=== PATIENT | male | born 1945 | race Hispanic/Latino ===

== ENCOUNTER 2017-02-24 15:55 | Emergency (ER) | payer MEDICARE ==
[2017-02-24 16:07] VITALS: BP 148/92; RESP 16; TEMP 98; BMI 24.3
[2017-02-24] MEDS ORDERED: TDAP Vaccine 0.5 mL Syr IM ONE (16:23)
--- NOTE | 2017-02-24 16:27 | ED PDOC ---
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 Patient stated he tripped and fell down forward, causing face injury. Patient noted cervical spine fusion surgery. Denies sob, cp, hemoptysis, dizziness, paresthesias, or abnormal gait. Time/Duration: Prior to Arrival Quality: Aching Context: Home Past Medical History - Provider Review Nursing Documentation Reviewed: Yes - Infectious Disease Hx of Infectious Diseases: None - Tetanus Immunization Tetanus Immunization: Unknown - Cardiac Hx Cardiac Disorders: Yes Hx Hypertension: Yes - Pulmonary Hx Respiratory Disorders: No - Neurological Hx Paralysis: No - HEENT Hx HEENT Disorder: No (WEARS RX GLASSES) - Renal Hx Renal Disorder: No - Endocrine/Metabolic Hx Endocrine Disorders: No - Hematological/Oncological Hx Blood Transfusions: No Hx Blood Transfusion Reaction: No - Integumentary Hx Dermatological Disorder: No - Musculoskeletal/Rheumatological Hx Falls: No - Gastrointestinal Hx Gastrointestinal Disorders: Yes (CONSTIPATION,COLON POLYPS,AKILA ING. HERNIA,) - Genitourinary/Gynecological Hx Genitourinary Disorders: Yes Hx Reproductive Disorders: Yes (ENLARGED PROSTATE) - Psychiatric Hx Emotional Abuse: No Hx Physical Abuse: No Hx Substance Use: No - Past Surgical History Past Surgical History: No Previous - Surgical History Other/Comment: 11-28-14 POST FIXATION/FUSION POST CERVICAL DECOMPRESSION 11-28-14 - Anesthesia Hx Anesthesia Reactions: Yes (VOMITING WITH ETHER CHILD) Hx Malignant Hyperthermia: No - Suicidal Assessment Feels Threatened In Home Enviroment: No Family/Social History - Physician Review Nursing Documentation Reviewed: Yes Family/Social History: No Known Family HX Smoking Status: Never Smoked Hx Alcohol Use: Yes (BEER OCCASIONALLY) Hx Substance Use: No Hx Substance Use Treatment: No Allergies/Home Meds Allergies/Adverse Reactions: Allergies No Known Allergies Allergy (Verified 02/24/17 16:11) Home Medications: Home Meds Medication Instructions Recorded Confirmed Apixaban [Eliquis] 5 mg PO BID 06/02/16 02/24/17 Finasteride [Proscar] 1 tab PO DAILY 06/03/16 02/24/17 Silodosin [Rapaflo] 1 cap PO DAILY 06/03/16 02/24/17 Lisinopril [Zestril] 0 mg PO DAILY 02/24/17 02/24/17 Review of Systems - Review of Systems Constitutional: Normal. absent: Fatigue, Weight Change, Fevers Eyes: Normal. absent: Vision Changes, Photophobia, Eye Pain ENT: Normal Respiratory: Normal. absent: SOB, Cough Cardiovascular: Normal. absent: Chest Pain, Palpitations Gastrointestinal: Normal. absent: Abdominal Pain, Nausea, Vomiting Genitourinary Male: Normal Musculoskeletal: Normal. absent: Back Pain, Neck Pain Skin: Other (abrasion) Neurological: Normal, Other (See HPI). absent: Headache, Dizziness, Focal Weakness, Gait Changes, Speech Changes, Facial Droop Endocrine: Normal Hemo/Lymphatic: Normal Psychiatric: Normal Physical Exam Vital Signs Temp Pulse Resp BP Pulse Ox 02/24/17 16:05 98 F 78 16 148/92 H 99 Temperature: Afebrile Blood Pressure: Normal Pulse: Regular Respiratory Rate: Normal Appearance: Positive for: Well-Appearing, Non-Toxic, Comfortable Pain Distress: None Mental Status: Positive for: Alert and Oriented X 3 - Systems Exam Head: Present: Normocephalic, Abrasion (left forehead abrasion), Other (No raccoon sign. no ortiz sign) Pupils: Present: PERRL, Other (no hyphema) Extroacular Muscles: Present: EOMI. No: Entrapment Conjunctiva: Present: Normal Ears: Present: Normal, NORMAL TM, Normal Canal, Other (No hemotympanum). No: Erythema, TM Bulging, Fluid, TM Perf Mouth: Present: Moist Mucous Membranes, Normal Lips, Normal Tounge, Normal Teeth. No: Drooling Pharnyx: Present: Normal. No: ERYTHEMA, EXUDATE, TONSILS ENLARGED Nose (External): Present: Abrasion, Contusion Nose (Internal): Present: No Active Bleeding. No: Septal Deviation, Septal Hematoma Neck: Present: Normal Range of Motion, Trachea Midline. No: Meningeal Signs, MIDLINE TENDERNESS, Paraspinal Tenderness Respiratory/Chest: Present: Clear to Auscultation, Good Air Exchange. No: Respiratory Distress, Accessory Muscle Use, Wheezes, Retracting, Rhonchi Cardiovascular: Present: Regular Rate and Rhythm, Normal S1, S2. No: Murmurs Abdomen: Present: Normal Bowel Sounds. No: Tenderness, Distention, Peritoneal Signs Back: Present: Normal Inspection. No: CVA Tenderness Upper Extremity: Present: Normal Inspection, Normal ROM, NORMAL PULSES, Neurovascularly Intact, Capillary Refill < 2s. No: Cyanosis, Edema Lower Extremity: Present: Normal Inspection, NORMAL PULSES, Normal ROM, Neurovascularly Intact, Capillary Refill < 2 s. No: Edema, CALF TENDERNESS Neurological: Present: GCS=15, CN II-XII Intact, Speech Normal Skin: Present: Warm, Dry, Normal Color. No: Rashes Psychiatric: Present: Alert, Oriented x 3 Medical Decision Making ED Course and Treatment: 02/24/17 19:23 Re-evaluation. Patient feels better. Discussed results and plan with patient who expresses understanding. All questions answered and there is agreement with the plan to discharge home with instructions. Patient stable for discharge. Return if symptoms persist or worsen. Patient was recommended to f/u ENT in 2-3 days. ABX was prescribed. Re-evaluation Time: 19:25 Reassessment Condition: Re-examined, Improved - RAD Interpretation Narrative RAD Interpretations (Text): 02/24/17 18:48 Accession No. : [id number] Patient Name / ID : SUREKHA OGLESBY / [id number] Exam Date : 02/24/2017 18:10:09 ( Approved ) Study Comment : Sex / Age : M / 71Y Creator : Ramon Buckley MD Dictator : Ramon Buckley MD Four H Agent : Linotype Mechanic : Ramon Buckley MD Approver2 : Report Date : 02/24/2017 18:40:07 My Comment : PROCEDURE: CT MAXILLOFACIAL BONES WITHOUT CONTRAST HISTORY: facial pain s/p trauma COMPARISON: None TECHNIQUE: Contiguous axial CT images of the maxillofacial bones were obtained. Coronal and sagittal reformats were generated. Radiation dose: Total exam DLP = 901.69 mGy-cm. This CT exam was performed using one or more of the following dose reduction techniques: Automated exposure control, adjustment of the mA and/or kV according to patient size, and/or use of iterative reconstruction technique. FINDINGS: NASAL BONES: Acute bilateral nasal bone fractures. Fracture through the bony nasal septum also identified. This does not extend to the hard palate. Soft tissue swelling attests to the acuity of the fracture. Thickening of the nasal turbinates noted as well. ORBITS: Unremarkable. PARANASAL SINUSES/ MASTOIDS: Clear. MAXILLA: Unremarkable. MANDIBLE/ TEMPOROMANDIBULAR JOINTS: Unremarkable. SKULL BASE: Unremarkable. TEMPORAL BONES: Middle ears and mastoid grossly unremarkable. OTHER FINDINGS: Incompletely visualized findings in the cervical spine related to prior ACDF. IMPRESSION: Bilateral acute nasal bone fractures. Fracture through the bony nasal septum which does not extend to the hard palate. No globe, retro coronal or orbital abnormalities. 02/24/17 18:49 Accession No. : [id number] Patient Name / ID : SUREKHA OGLESBY / [id number] Exam Date : 02/24/2017 18:04:26 ( Approved ) Study Comment : Sex / Age : M / 71Y Creator : Baylee Shearer MD Dictator : Baylee Shearer MD Four H Agent : Linotype Mechanic : Baylee Shearer MD Approver2 : Report Date : 02/24/2017 18:34:11 My Comment : PROCEDURE: CT HEAD WITHOUT CONTRAST. HISTORY: head trauma, ROWAN COMPARISON: None available. TECHNIQUE: Axial computed tomography images were obtained through the head/brain without intravenous contrast. Radiation dose: Total exam DLP = 774.23 mGy-cm. This CT exam was performed using one or more of the following dose reduction techniques: Automated exposure control, adjustment of the mA and/or kV according to patient size, and/or use of iterative reconstruction technique. FINDINGS: HEMORRHAGE: No intracranial hemorrhage. BRAIN: No mass effect or edema. The lopez-white matter differentiation appears intact. Please note that MRI with diffusion imaging is more sensitive in the detection of acute ischemic event. VENTRICLES: No hydrocephalus. CALVARIUM: Unremarkable. PARANASAL SINUSES: Unremarkable as visualized. No significant inflammatory changes. MASTOID AIR CELLS: Unremarkable as visualized. No inflammatory changes. OTHER FINDINGS: Left frontal scalp hematoma. Partially imaged right nasal bone fracture deformity. IMPRESSION: Left frontal scalp hematoma. Partially imaged right nasal bone fracture deformity. No acute intracranial pathology identified. 02/24/17 19:23 CT Cervical Spine Without Intravenous Contrast CLINICAL HISTORY: 71 years old, male; Injury or trauma; Fall; Initial encounter; Concussion /head injury; Prior surgery; FINDINGS: Vertebrae: There is reversal of the cervical lordosis. There is distortion of prevertebral soft tissues by osteophytes. Bony structures are diffusely osteopenic. There are degenerative changes at multiple levels. There postsurgical changes of anterior fusion C3/C4 There is an anterior plate and screws. There is graft material in the C3-4 disc space. There is posterior fusion C3/C4/C5. There are bilateral pedicle screws and bars. There is a laminectomy at C4. C1 and C2 are intact. There is narrowing of the predental space. There is narrowing of the C2-3 disc space with osteophyte formation. There are degenerative changes at all levels inferior to the fusion. There is disc space narrowing and osteophyte formation. There is mild wedging of C6 and C7 with bulky osteophytes. Facet joints align anatomically. Discs/spinal canal/neural foramina: See above. Soft tissues: unremarkable Dental: Streak artifact from dental fillings degrades image quality. Thyroid: Thyroid is not optimally demonstrated. Lung apices: There is scarring at the lung apices Other findings: Airway: Airway is unremarkable IMPRESSION: Osteopenia and degenerative change; anterior posterior fusion C3/C4/ C5 with C4 laminectomy; no acute osseous abnormality Thank you for allowing us to participate in the care of your patient. Dictated and Authenticated by: Kelley Mayfield MD 02/24/2017 7:10 PM Eastern Time ([place] & [place]) Radiology Orders: 02/24/17 16:22 HEAD W/O CONTRAST [CT] Stat 02/24/17 16:23 CERVICAL SPINE W/O CONTRAST [CT] Stat MAXILLOFACIAL W/O CONTRAST [CT] Stat - Medication Orders Current Medication Orders: Discontinued Medications Amoxicillin/Clavulanate Potassium (Augmentin 875 Mg-125 Mg Tab) 1 tab PO STAT STA PRN Reason: Protocol Stop: 02/24/17 18:54 Tetanus/Reduced Diphtheria/Acell Pertussis (Boostrix Vaccine Inj) 0.5 ml IM .ONCE ONE Stop: 02/24/17 16:24 Disposition/Present on Arrival - Present on Arrival Any Indicators Present on Arrival: No History of DVT/PE: No History of Uncontrolled Diabetes: No Urinary Catheter: Yes History of Decub. Ulcer: No History Surgical Site Infection Following: None - Disposition Have Diagnosis and Disposition been Completed?: Yes Diagnosis: Nasal fracture, Facial abrasion, Closed head injury, Fall Disposition: HOME/ ROUTINE Disposition Time: 19:27 Patient Plan: Discharge Condition: GOOD Discharge Instructions (ExitCare): Head Injury (ED), Nasal Fracture (ED), Abrasion (ED) Additional Instructions: Call private ENT doctor for follow up visit in 1-3 days. Take medication as instructed. Return to emergency if symptoms worsen. Clean wound with soap and water. Do Not blow nose. Do not use peroxide or alcohol to clean wound. Prescriptions: Acetaminophen with Codeine [Tylenol with Codeine #3 Tablet] 1 each PO Q6H PRN # 10 tablet PRN Reason: Pain, Severe (8-10) Amoxicillin/Clavulanate [Augmentin 875 MG-125 MG] 1 tab PO BID #20 tab Referrals: Ary Hernandes MD [Primary Care Provider] - Follow up with primary Terry Salvador DO [[facility]] - Follow up with primary
--- NOTE | 2017-02-24 18:36 | CT ---
PROCEDURE: CT HEAD WITHOUT CONTRAST. HISTORY: head trauma, ROWAN COMPARISON: None available. TECHNIQUE: Axial computed tomography images were obtained through the head/brain without intravenous contrast. Radiation dose: Total exam DLP = 774.23 mGy-cm. This CT exam was performed using one or more of the following dose reduction techniques: Automated exposure control, adjustment of the mA and/or kV according to patient size, and/or use of iterative reconstruction technique. FINDINGS: HEMORRHAGE: No intracranial hemorrhage. BRAIN: No mass effect or edema. The lopez-white matter differentiation appears intact. Please note that MRI with diffusion imaging is more sensitive in the detection of acute ischemic event. VENTRICLES: No hydrocephalus. CALVARIUM: Unremarkable. PARANASAL SINUSES: Unremarkable as visualized. No significant inflammatory changes. MASTOID AIR CELLS: Unremarkable as visualized. No inflammatory changes. OTHER FINDINGS: Left frontal scalp hematoma. Partially imaged right nasal bone fracture deformity. IMPRESSION: Left frontal scalp hematoma. Partially imaged right nasal bone fracture deformity. No acute intracranial pathology identified.
--- NOTE | 2017-02-24 18:42 | CT ---
PROCEDURE: CT MAXILLOFACIAL BONES WITHOUT CONTRAST HISTORY: facial pain s/p trauma COMPARISON: None TECHNIQUE: Contiguous axial CT images of the maxillofacial bones were obtained. Coronal and sagittal reformats were generated. Radiation dose: Total exam DLP = 901.69 mGy-cm. This CT exam was performed using one or more of the following dose reduction techniques: Automated exposure control, adjustment of the mA and/or kV according to patient size, and/or use of iterative reconstruction technique. FINDINGS: NASAL BONES: Acute bilateral nasal bone fractures. Fracture through the bony nasal septum also identified. This does not extend to the hard palate. Soft tissue swelling attests to the acuity of the fracture. Thickening of the nasal turbinates noted as well. ORBITS: Unremarkable. PARANASAL SINUSES/ MASTOIDS: Clear. MAXILLA: Unremarkable. MANDIBLE/ TEMPOROMANDIBULAR JOINTS: Unremarkable. SKULL BASE: Unremarkable. TEMPORAL BONES: Middle ears and mastoid grossly unremarkable. OTHER FINDINGS: Incompletely visualized findings in the cervical spine related to prior ACDF. IMPRESSION: Bilateral acute nasal bone fractures. Fracture through the bony nasal septum which does not extend to the hard palate. No globe, retro coronal or orbital abnormalities.
[2017-02-24] MEDS ORDERED: Amoxicillin-Clav 875-125 mg Tab PO STA (18:53)
[2017-02-25 01:12] VITALS: PULSE 63; O2SAT 100
--- NOTE | 2017-02-25 10:35 | CT ---
PROCEDURE: CT Cervical Spine without contrast HISTORY: Fall, pain COMPARISON: None available. TECHNIQUE: Axial computed tomography images were obtained of the cervical spine without the use of intravenous contrast. Coronal and sagittal reformatted images were created and reviewed. Radiation dose: Total exam DLP = 561 mGy-cm. This CT exam was performed using one or more of the following dose reduction techniques: Automated exposure control, adjustment of the mA and/or kV according to patient size, and/or use of iterative reconstruction technique. FINDINGS: VERTEBRAE: No fracture. Normal alignment. No destructive bony lesion. There is reversal of the normal lordotic curvature DISCS/SPINAL CANAL/NEURAL FORAMINA: No significant central canal or neural foraminal stenosis. There has been fusion at the C3-4 level there has also been laminectomy at this level. There are posterior pedicle screws and rods at C3-C4 and C5. PARASPINAL SOFT TISSUES: Unremarkable. OTHER FINDINGS: The report concurs with the preliminary [facility] report IMPRESSION: Previous fusion C3-4. No acute fracture
== END 2017-02-24 19:55 | disposition home or self-care (01) ==
LOC: ED 15:55
DX: S02.2XXA Fracture of nasal bones, initial encounter for closed fracture (principal); S00.81XA Abrasion of other part of head, initial encounter; S09.90XA Unspecified injury of head, initial encounter; W01.0XXA Fall on same level from slipping, tripping and stumbling without subsequent striking against object, initial encounter; Y92.009 Unspecified place in unspecified non-institutional (private) residence as the place of occurrence of the external cause; I10 Essential (primary) hypertension; Z23 Encounter for immunization

== ENCOUNTER 2017-04-09 18:13 | Emergency (ER) | payer MEDICARE ==
[2017-04-09 18:14] VITALS: BMI 24.3
[2017-04-09 18:24] VITALS: TEMP 97.8
[2017-04-09 19:47] VITALS: RESP 16
[2017-04-09 19:49] LABS: URINE BILIRUBIN NEGATIVE (NEGATIVE); URINE BLOOD MODERATE (NEGATIVE); URINE GLUCOSE (UA) 100 mg/dL (NEGATIVE); URINE LEUKOCYTE ESTERASE NEGATIVE Leu/uL (NEGATIVE); URINE NITRATE NEGATIVE (NEGATIVE); URINE PROTEIN 30 mg/dL (<30 mg/dL); URINE UROBILINOGEN 0.2 E.U./dL (<1 E.U./dL)
[2017-04-09 20:02] LABS: URINE APPEARANCE CLEAR (CLEAR); URINE COLOR YELLOW (YELLOW)
[2017-04-09 20:03] LABS: URINE RBC 20 - 25 /hpf (0-2)
[2017-04-09 20:42] VITALS: PULSE 89; O2SAT 96
--- NOTE | 2017-04-09 21:05 | ED PDOC ---
Arrival/HPI - General Chief Complaint: Male Genitourinary Time Seen by Provider: 04/09/17 19:04 Historian: Patient - History of Present Illness Narrative History of Present Illness (Text): 04/09/17 20:54 71-year-old male presents today with urinary retention since this morning. Patient states that he has been unable to urinate since the morning. Patient states he has a history of enlarged prostate and a history of urinary retention in the past. He is complaining of abdominal pressure. He denies back pain. Denies fevers or chills. Denies chest pain or shortness of breath. No other complaints Time/Duration: Other (this morning) Symptom Onset: Gradual Symptom Course: Worsening Quality: Aching, Pressure Severity Level: 10, Severe Past Medical History - Provider Review Nursing Documentation Reviewed: Yes - Travel History Have you recently traveled outside [place] w/in the past 3 mons?: No - Infectious Disease Hx of Infectious Diseases: None - Tetanus Immunization Tetanus Immunization: Unknown - Cardiac Hx Cardiac Disorders: Yes Hx Hypertension: Yes - Pulmonary Hx Respiratory Disorders: No - Neurological Hx Paralysis: No - HEENT Hx HEENT Disorder: No (WEARS RX GLASSES) - Renal Hx Renal Disorder: No - Endocrine/Metabolic Hx Endocrine Disorders: No - Hematological/Oncological Hx Blood Transfusions: No Hx Blood Transfusion Reaction: No - Integumentary Hx Dermatological Disorder: No - Musculoskeletal/Rheumatological Hx Falls: No - Gastrointestinal Hx Gastrointestinal Disorders: Yes (CONSTIPATION,COLON POLYPS,AKILA ING. HERNIA,) - Genitourinary/Gynecological Hx Genitourinary Disorders: Yes Hx Reproductive Disorders: Yes (ENLARGED PROSTATE) - Psychiatric Hx Emotional Abuse: No Hx Physical Abuse: No Hx Substance Use: No - Past Surgical History Past Surgical History: No Previous - Surgical History Other/Comment: 11-28-14 POST FIXATION/FUSION POST CERVICAL DECOMPRESSION 11-28-14 - Anesthesia Hx Anesthesia Reactions: Yes (VOMITING WITH ETHER CHILD) Hx Malignant Hyperthermia: No - Suicidal Assessment Feels Threatened In Home Enviroment: No Family/Social History - Physician Review Nursing Documentation Reviewed: Yes Family/Social History: Unknown Family HX Smoking Status: Never Smoked Hx Alcohol Use: Yes (BEER OCCASIONALLY) Hx Substance Use: No Hx Substance Use Treatment: No Allergies/Home Meds Allergies/Adverse Reactions: Allergies No Known Allergies Allergy (Verified 02/24/17 16:11) Home Medications: Home Meds Medication Instructions Recorded Confirmed Apixaban [Eliquis] 5 mg PO BID 06/02/16 02/24/17 Finasteride [Proscar] 1 tab PO DAILY 06/03/16 02/24/17 Silodosin [Rapaflo] 1 cap PO DAILY 06/03/16 02/24/17 Lisinopril [Zestril] 0 mg PO DAILY 02/24/17 02/24/17 Review of Systems - Review of Systems Constitutional: absent: Fatigue, Fevers Respiratory: absent: SOB, Cough Cardiovascular: absent: Chest Pain, Palpitations Gastrointestinal: Abdominal Pain. absent: Constipation, Diarrhea, Nausea, Vomiting Genitourinary Male: Urinary Output Changes (urinary retention). absent: Dysuria , Frequency, Hematuria Musculoskeletal: absent: Arthralgias, Back Pain, Neck Pain Skin: absent: Rash, Pruritis Neurological: absent: Headache, Dizziness Psychiatric: absent: Anxiety, Depression Physical Exam Vital Signs Reviewed: Yes Vital Signs Temp Pulse Resp BP Pulse Ox 04/09/17 20:41 89 16 120/69 96 04/09/17 19:46 84 16 121/71 97 04/09/17 18:20 97.8 F 106 H 20 178/104 H 99 Temperature: Afebrile Blood Pressure: Hypertensive Pulse: Tachycardic Respiratory Rate: Normal Appearance: Positive for: Well-Appearing, Non-Toxic, Uncomfortable Pain Distress: None Mental Status: Positive for: Alert and Oriented X 3 - Systems Exam Head: Present: Atraumatic Mouth: Present: Moist Mucous Membranes Neck: Present: Normal Range of Motion Respiratory/Chest: Present: Clear to Auscultation, Good Air Exchange. No: Respiratory Distress, Accessory Muscle Use Cardiovascular: Present: Regular Rate and Rhythm, Normal S1, S2. No: Murmurs Abdomen: Present: Tenderness (suprapubic tenderness), Distention, Normal Bowel Sounds. No: Peritoneal Signs Genitourinary Male: Present: Normal External Genitalia Neurological: Present: GCS=15 Skin: Present: Warm, Dry, Normal Color. No: Rashes Psychiatric: Present: Alert, Oriented x 3 Medical Decision Making ED Course and Treatment: 04/09/17 21:07 71-year-old male with a history of enlarged prostate presents with urinary retention since this morning 16 caude catheter inserted. 1600 mL of urine output A urinalysis shows positive blood, no leukocytes Case was discussed in depth with dr. palmer the patient's urologist. Patient is to be started on Cipro and follow up in the office tomorrow. Patient was observed in the emergency room. Vital signs remain stable. Patient is comfortable without any complaints at present time. Patient verbalizes understanding of discharge instructions and need for immediate followup. all aspects of this case were discussed the attending of record. Impression: Urinary retention cipro; twice daily 7 days Follow-up urologist tomorrow Return if symptoms worsen or persist or if new concerning symptoms develop - Lab Interpretations Lab Results: Lab Results 04/09/17 19:33: Urine Color Yellow, Urine Appearance Clear, Urine pH 6.0, Ur Specific Faulkner 1.020, Urine Protein 30 H, Urine Glucose (UA) 100 H, Urine Ketones Trace H, Urine Blood Moderate H, Urine Nitrate Negative, Urine Bilirubin Negative, Urine Urobilinogen 0.2, Ur Leukocyte Esterase Negative, Urine RBC 20 - 25, Urine WBC 2 - 5, Ur Epithelial Cells 6 - 8 - Medication Orders Current Medication Orders: Discontinued Medications Ciprofloxacin (Cipro) 500 mg PO ONCE STA PRN Reason: Protocol Stop: 04/09/17 20:18 Disposition/Present on Arrival - Present on Arrival Any Indicators Present on Arrival: Yes History of DVT/PE: No History of Uncontrolled Diabetes: No Urinary Catheter: Yes History of Decub. Ulcer: No History Surgical Site Infection Following: None - Disposition Have Diagnosis and Disposition been Completed?: Yes Diagnosis: Urinary retention Disposition: HOME/ ROUTINE Disposition Time: 21:09 Patient Plan: Discharge Condition: GOOD Discharge Instructions (ExitCare): Urinary Retention in Men (ED) Additional Instructions: cipro; twice daily 7 days Follow-up urologist tomorrow. Call dr. Zamarripa cell phone to schedule f/u: Return if symptoms worsen or persist or if new concerning symptoms develop Prescriptions: Ciprofloxacin [Cipro] 500 mg PO BID #14 tab Referrals: Ary Hernandes MD [Primary Care Provider] - Follow up with primary Cristhian Palmer MD [Staff Provider] - Follow up with primary Forms: [facility] [employer] (Vietnamese)
[2017-04-09 21:11] VITALS: BP 121/76
== END 2017-04-09 21:23 | disposition home or self-care (01) ==
LOC: ED 18:13
DX: R33.9 Retention of urine, unspecified (principal)

== ENCOUNTER 2017-04-11 21:31 | Emergency (ER) | payer MEDICARE ==
[2017-04-11 21:34] VITALS: BMI 24.3
[2017-04-11 21:45] VITALS: RESP 18
--- NOTE | 2017-04-11 22:37 | ED PDOC ---
Arrival/HPI - General Chief Complaint: Male Genitourinary Time Seen by Provider: 04/11/17 21:37 Historian: Patient - History of Present Illness Narrative History of Present Illness (Text): 04/11/17 21:53 A 71 year old male whose past medical history includes hypertension, who presents to the emergency department with urinary retention. He states he had some hematuria yesterday, his cooley catheter became blocked, and has not been able to pass any urine through the cooley today. The patient denies fevers, chills, headache, dizziness, chest pain, abdominal pain, nausea, vomiting, diarrhea or any other complaints. Time/Duration: Other (Yesterday) Symptom Course: Unchanged Activities at Onset: Rest, Light Context: Home Past Medical History - Provider Review Nursing Documentation Reviewed: Yes - Infectious Disease Hx of Infectious Diseases: None - Tetanus Immunization Tetanus Immunization: Unknown - Cardiac Hx Cardiac Disorders: Yes Hx Hypertension: Yes - Pulmonary Hx Respiratory Disorders: No - Neurological Hx Paralysis: No - HEENT Hx HEENT Disorder: No (WEARS RX GLASSES) - Renal Hx Renal Disorder: No - Endocrine/Metabolic Hx Endocrine Disorders: No - Hematological/Oncological Hx Blood Transfusions: No Hx Blood Transfusion Reaction: No - Integumentary Hx Dermatological Disorder: No - Musculoskeletal/Rheumatological Hx Falls: No - Gastrointestinal Hx Gastrointestinal Disorders: Yes (CONSTIPATION,COLON POLYPS,AKILA ING. HERNIA,) - Genitourinary/Gynecological Hx Genitourinary Disorders: Yes Hx Reproductive Disorders: Yes (ENLARGED PROSTATE) - Psychiatric Hx Emotional Abuse: No Hx Physical Abuse: No Hx Substance Use: No - Past Surgical History Past Surgical History: No Previous - Surgical History Other/Comment: 11-28-14 POST FIXATION/FUSION POST CERVICAL DECOMPRESSION 11-28-14 - Anesthesia Hx Anesthesia Reactions: Yes (VOMITING WITH ETHER CHILD) Hx Malignant Hyperthermia: No - Suicidal Assessment Feels Threatened In Home Enviroment: No Family/Social History - Physician Review Nursing Documentation Reviewed: Yes Family/Social History: No Known Family HX Smoking Status: Never Smoked Hx Alcohol Use: Yes (BEER OCCASIONALLY) Hx Substance Use: No Hx Substance Use Treatment: No Allergies/Home Meds Allergies/Adverse Reactions: Allergies No Known Allergies Allergy (Verified 02/24/17 16:11) Home Medications: Home Meds Medication Instructions Recorded Confirmed RX: Apixaban [Eliquis] 5 mg PO BID 06/02/16 04/11/17 RX: Finasteride [Proscar] 1 tab PO DAILY 06/03/16 04/11/17 RX: Silodosin [Rapaflo] 1 cap PO DAILY 06/03/16 04/11/17 Lisinopril [Zestril] 0 mg PO DAILY 02/24/17 04/11/17 Review of Systems - Physician Review All systems were reviewed & negative as marked: Yes - Review of Systems Constitutional: Normal. absent: Fevers, Night Sweats Cardiovascular: Normal. absent: Chest Pain Gastrointestinal: Normal. absent: Abdominal Pain, Diarrhea, Nausea, Vomiting Genitourinary Male: Hematuria, Urinary Output Changes (Urinary retention) Musculoskeletal: absent: Back Pain Neurological: Normal. absent: Headache, Dizziness Physical Exam Vital Signs Reviewed: Yes Vital Signs Temp Pulse Resp BP Pulse Ox 04/11/17 21:43 97.9 F 93 H 18 165/105 H 99 Temperature: Afebrile Blood Pressure: Hypertensive Pulse: Regular Respiratory Rate: Normal Appearance: Positive for: Well-Appearing Pain Distress: None Mental Status: Positive for: Alert and Oriented X 3 - Systems Exam Head: Present: Atraumatic, Normocephalic Pupils: Present: PERRL Extroacular Muscles: Present: EOMI Conjunctiva: Present: Normal Mouth: Present: Moist Mucous Membranes Neck: Present: Normal Range of Motion Respiratory/Chest: Present: Clear to Auscultation, Good Air Exchange. No: Respiratory Distress, Accessory Muscle Use Cardiovascular: Present: Regular Rate and Rhythm Abdomen: Present: Distention (Some suprapubic fullness), Normal Bowel Sounds. No: Tenderness Genitourinary Male: Present: Other (Cooley catheter present) Back: Present: Normal Inspection. No: CVA Tenderness, Midline Tenderness, Paraspinal Tenderness Upper Extremity: Present: Normal Inspection Lower Extremity: Present: Normal Inspection Neurological: Present: GCS=15, CN II-XII Intact Skin: Present: Warm, Dry, Normal Color. No: Rashes Psychiatric: Present: Alert, Oriented x 3, Normal Insight, Normal Concentration Medical Decision Making ED Course and Treatment: 04/11/17 22:00 Impression: A 71 year old male with urinary retention today. Differential Diagnosis included but are not limited to: urinary retention vs. hematuria vs. BPH Plan: -- Cooley catheter -- Reassess and disposition Prior Visits: Notes and results from previous visits were reviewed. Patient was last seen in the emergency department on 04/09/2017 for trouble urinating and abdominal pressure. Progress Notes: 04/11/17 23:56 Cooley replaced by RN. Pt passing urine without difficulty following cooley catheter replacement. Reports he felt significantly better. Patient is stable for discharge. Patient was instructed to follow up with physician/clinic in 1-2 days or return if symptoms persist/worsen or new concerning symptoms arise. - Scribe Statement The provider has reviewed the documentation as recorded by the Scribe Rhianna Corcoran training under Analisa Ceron Provider Scribe Attestation: All medical record entries made by the Scribe were at my direction and personally dictated by me. I have reviewed the chart and agree that the record accurately reflects my personal performance of the history, physical exam, medical decision making, and the department course for this patient. I have also personally directed, reviewed, and agree with the discharge instructions and disposition. Disposition/Present on Arrival - Present on Arrival Any Indicators Present on Arrival: No History of DVT/PE: No History of Uncontrolled Diabetes: No Urinary Catheter: Yes History of Decub. Ulcer: No History Surgical Site Infection Following: None - Disposition Have Diagnosis and Disposition been Completed?: Yes Diagnosis: Urinary retention due to benign prostatic hyperplasia Disposition: HOME/ ROUTINE Disposition Time: 23:56 Patient Plan: Discharge Patient Problems: Current Active Problems Problem Status Onset Urinary retention due to benign prostatic hyperplasia Acute Condition: GOOD Discharge Instructions (ExitCare): Urinary Retention in Men (ED) Additional Instructions: Maintain urinary cooley catheter/leg bag/follow up with on Thursday as scheduled Referrals: Ary Hernandes MD [Primary Care Provider] - Follow up with primary Forms: [employer] (Wolof)
[2017-04-12 03:57] VITALS: BP 145/80; PULSE 85; TEMP 98; O2SAT 98
== END 2017-04-12 00:25 | disposition home or self-care (01) ==
LOC: ED 21:31
DX: N40.1 Benign prostatic hyperplasia with lower urinary tract symptoms (principal); R33.8 Other retention of urine

== ENCOUNTER 2018-03-22 02:13 | Emergency (ER) | payer MEDICARE ==
[2018-03-22 02:23] VITALS: TEMP 97.4; BMI 23.7
--- NOTE | 2018-03-22 02:44 | ED PDOC ---
Arrival/HPI - General Chief Complaint: Male Genitourinary Time Seen by Provider: 03/22/18 02:19 Historian: Patient - History of Present Illness Narrative History of Present Illness (Text): 03/22/18 02:35 Dale Rincon is a 72 year old male, whose past medical history includes BPH and hypertension, who presents to the Emergency department complaining of urinary retention. Patient states he has been unable to void his urine since yesterday evening. Patient denies any fever, chills, nausea, vomiting, diarrhea, back pain , dizziness, or any other complaints. Urologist: Dr. Palmer Symptom Onset: Gradual Symptom Course: Unchanged Activities at Onset: Light Context: Home Past Medical History - Provider Review Nursing Documentation Reviewed: Yes - Infectious Disease Hx of Infectious Diseases: None - Tetanus Immunization Tetanus Immunization: Unknown - Cardiac Hx Cardiac Disorders: Yes Hx Hypertension: Yes - Pulmonary Hx Respiratory Disorders: No - Neurological Hx Paralysis: No - HEENT Hx HEENT Disorder: No (WEARS RX GLASSES) - Renal Hx Renal Disorder: No - Endocrine/Metabolic Hx Endocrine Disorders: No - Hematological/Oncological Hx Blood Transfusions: No Hx Blood Transfusion Reaction: No - Integumentary Hx Dermatological Disorder: No - Musculoskeletal/Rheumatological Hx Falls: No - Gastrointestinal Hx Gastrointestinal Disorders: Yes (CONSTIPATION,COLON POLYPS,AKILA ING. HERNIA,) - Genitourinary/Gynecological Hx Genitourinary Disorders: Yes Hx Reproductive Disorders: Yes (ENLARGED PROSTATE) - Psychiatric Hx Emotional Abuse: No Hx Physical Abuse: No Hx Substance Use: No - Past Surgical History Past Surgical History: No Previous - Surgical History Other/Comment: 11-28-14 POST FIXATION/FUSION POST CERVICAL DECOMPRESSION 11-28-14 - Anesthesia Hx Anesthesia Reactions: Yes (VOMITING WITH ETHER CHILD) Hx Malignant Hyperthermia: No - Suicidal Assessment Feels Threatened In Home Enviroment: No Family/Social History - Physician Review Nursing Documentation Reviewed: Yes Family/Social History: Unknown Family HX Smoking Status: Never Smoked Hx Alcohol Use: Yes (BEER OCCASIONALLY) Hx Substance Use: No Hx Substance Use Treatment: No Allergies/Home Meds Allergies/Adverse Reactions: Allergies No Known Allergies Allergy (Verified 03/22/18 02:23) Review of Systems - Physician Review All systems were reviewed & negative as marked: Yes - Review of Systems Constitutional: Normal. absent: Fevers Eyes: Normal ENT: Normal Respiratory: Normal. absent: SOB, Cough Cardiovascular: Normal. absent: Chest Pain Gastrointestinal: Normal. absent: Abdominal Pain, Diarrhea, Nausea, Vomiting Genitourinary Male: Urinary Output Changes (+urinary retention) Musculoskeletal: Normal. absent: Back Pain, Neck Pain Skin: Normal. absent: Rash Neurological: Normal. absent: Headache, Dizziness Endocrine: Normal Hemo/Lymphatic: Normal Psychiatric: Normal Physical Exam Vital Signs Reviewed: Yes Vital Signs Temp Pulse Resp BP Pulse Ox 03/22/18 03:28 90 116/69 97 03/22/18 03:26 90 18 116/69 97 03/22/18 02:26 89 15 169/100 H 98 03/22/18 02:22 97.4 F L Temperature: Afebrile Blood Pressure: Normal Pulse: Regular Respiratory Rate: Normal Appearance: Positive for: Well-Appearing, Non-Toxic, Comfortable Pain Distress: None Mental Status: Positive for: Alert and Oriented X 3 - Systems Exam Head: Present: Atraumatic, Normocephalic Pupils: Present: PERRL Extroacular Muscles: Present: EOMI Conjunctiva: Present: Normal Mouth: Present: Moist Mucous Membranes Neck: Present: Normal Range of Motion Respiratory/Chest: Present: Clear to Auscultation, Good Air Exchange. No: Respiratory Distress, Accessory Muscle Use Cardiovascular: Present: Regular Rate and Rhythm, Normal S1, S2. No: Murmurs Abdomen: No: Tenderness, Distention, Peritoneal Signs Back: Present: Normal Inspection Upper Extremity: Present: Normal Inspection. No: Cyanosis, Edema Lower Extremity: Present: Normal Inspection. No: Edema Neurological: Present: GCS=15, CN II-XII Intact, Speech Normal Skin: Present: Warm, Dry, Normal Color. No: Rashes Psychiatric: Present: Alert, Oriented x 3, Normal Insight, Normal Concentration Medical Decision Making ED Course and Treatment: 03/22/18 02:35 Impression: 72 year old male complaining of urinary retention since yesterday evening. Differential Diagnosis included but are not limited to: urinary retention vs. BPH Plan: -- Thompson catheter insertion -- Reassess and disposition Prior Visits: Notes and results from previous visits were reviewed. On 04/11/2017, pt was seen in the Emergency department for urinary retention, hematuria, and obstructed Thompson catheter. Pt was d/c home after Thompson replacement. Progress Notes: PROCEDURE: Thompson Catheter Insertion Performed by the emergency provider Consent: Informed consent, after discussion of the risks, benefits, and alternatives to the procedure was obtained. Timeout: A timeout to verify the correct patient, procedure, and site was performed. Indication: urinary retention Preparation: Hand hygiene performed. The area prepped and draped in the usual sterile fashion Procedure: A 16 [place] Coude Thompson catheter was inserted to the urethra with successful placement, flushes well. Draining >300cc of urine without difficulty. Post-procedure: The patient tolerated the procedure well with no immediate complications - Scribe Statement The provider has reviewed the documentation as recorded by the Jed Ceron Provider Scribe Attestation: All medical record entries made by the Scribe were at my direction and personally dictated by me. I have reviewed the chart and agree that the record accurately reflects my personal performance of the history, physical exam, medical decision making, and the department course for this patient. I have also personally directed, reviewed, and agree with the discharge instructions and disposition. Disposition/Present on Arrival - Present on Arrival Any Indicators Present on Arrival: No History of DVT/PE: No History of Uncontrolled Diabetes: No Urinary Catheter: Yes History of Decub. Ulcer: No History Surgical Site Infection Following: None - Disposition Have Diagnosis and Disposition been Completed?: Yes Diagnosis: Urinary retention Disposition: HOME/ ROUTINE Disposition Time: 03:30 Condition: GOOD Discharge Instructions (ExitCare): Thompson Catheter, Male, Urinary Retention (DC) Prescriptions: Ciprofloxacin HCl [Cipro] 250 mg PO BID #14 tab Finasteride [Proscar] 5 mg PO DAILY #30 tab Silodosin [Rapaflo] 4 mg PO DAILY #30 capsule Forms: [employer] (Turkmen)
[2018-03-22 03:27] VITALS: BP 116/69; PULSE 90; RESP 18; O2SAT 97
== END 2018-03-22 03:28 | disposition home or self-care (01) ==
LOC: ED 02:13
DX: N40.1 Benign prostatic hyperplasia with lower urinary tract symptoms (principal); R33.8 Other retention of urine; I10 Essential (primary) hypertension

== ENCOUNTER 2018-04-14 06:11 | Day surgery (SDC) | payer MEDICARE ==
[2018-04-14] MEDS ORDERED: cefTRIAXone (Rocephin) 1 gm Inj ONE (07:21)
[2018-04-14] MEDS ORDERED: Phenylephrine 10 mg/ml Inj ONE ×2 (07:57→08:07)
[2018-04-14] MEDS ORDERED: ePHEDrine 50 mg/ml Inj ONE (08:07)
[2018-04-14] MEDS ORDERED: Lidocaine 1% Inj (20ml) ONE (08:13)
[2018-04-14] MEDS ORDERED: Magnesium Citrate Oral SOL (300 ml) PO ONE (08:15)
[2018-04-14] MEDS ORDERED: Oxycodone/Acetaminophen 5/325 mg Tab PO PRN (08:15)
[2018-04-14] MEDS ORDERED: Gentamicin 80 mg/2mL Inj. ONE (09:14)
[2018-04-14] MEDS ORDERED: HYDROmorphone 0.5 mg/0.5 ml ISec IVP PRN (10:21)
[2018-04-14] MEDS ORDERED: Lactated Ringer's 1,000 ML IV SCH (10:30)
[2018-04-14 17:14] VITALS: O2SAT 98
--- NOTE | 2018-04-15 05:12 | HP ---
Copied To: Efren Palmer MD Attending MD: Efren Palmer MD UROLOGY ADMISSION HISTORY AND PHYSICAL REASON FOR ADMISSION: Treatment of urinary retention. HISTORY OF PRESENT ILLNESS: Mr. Rincon is a very pleasant gentleman who has a longstanding history of urinary retention. He is very pleasant, but the matter he is somewhat in denial of this retention. It has been going on for quite sometime. We have tried various nonsurgical approaches to it, medical therapy. Perhaps even years ago, he had a microwave thermotherapy. But at this point, he has had recurrent episodes of retention. I also discussed with the patient, he is here today for a photovaporization GreenLight laser TURP. I have explained to the patient the possibility of this is not working. At this point, he may have some component that his bladder is also poorly functioning. But he still does have sensation. We discussed even urodynamic workup. At this point, he just wants further treatment and to try to get rid of the catheter. PAST MEDICAL AND SURGICAL HISTORY: The patient has multiple medical doctors. His laboratory cureman is Dr. Perez. His echo is noted on the chart. Medical clearance, etc. all are provided in the chart. But at this point, he is in retention and we urgently bring him to the OR. MEDICATIONS: See the chart. REVIEW OF SYSTEMS: Listed above, others noncontributory. SOCIAL HISTORY: He is here with his and otherwise unremarkable. No history of alcohol abuse. PHYSICAL EXAMINATION: GENERAL: A well-developed, well-nourished male, in no apparent distress. VITAL SIGNS: Within normal limits, included in the chart. LUNGS: Clear. HEART: Normal S1 and S2. ABDOMEN: Overall, soft and nontender. No flank masses. LYMPHATICS: No cervical, axillary or lymphadenopathy elsewhere. GENITOURINARY: There is a Thompson catheter in place draining clear yellow urine. RECTAL: A 30-40 g prostate, soft and smooth. LABORATORY DATA: See chart. DIAGNOSES: Gross hematuria, urinary retention, voiding dysfunction, elevated prostate-specific antigen. PLAN: As follows. We have done biopsies before. There is no cancer. I have discussed with the patient concerns with the fact that it could be at this point that he may have a neurogenic component to the bladder. But at this point, I think his best option is surgical resection. I even discussed open surgery with the patient after discussing all these options with the patient. The plan will be as follows. We are going to plan for a PVP GreenLight laser TURP. We have made arrangements. I have discussed with him risks, benefits and alternatives. Just as a separate find out, literally as he into the room, he said he has not had a bowel movement. We discussed this for 3 days. We have discussed this multiple times. At this point, he has very limited options. I discussed even the possibility of canceling the surgery. We would like to proceed, so we are going to explain to the patient we will not be able to do an enema postop, but we will give him from above various medications to assist him with moving his bowels. Further plans will follow. This may also alter. I explained to the patient we probably have to keep him in the hospital to monitor him more closely, so he does not strain to move his bowels and not anyway discharge him home. So further plans to follow. Plans for today are, 1. Antibiotic prophylaxis. 2. Photovaporization GreenLight laser TURP on an urgent basis and then further plans will follow. One other little issue the patient discussed with the anesthesiologist is he prefers spinal. We discussed risks, benefits and treatment alternatives, but this mostly left to the Anesthesia Department. We are going to plan to proceed. Efren Palmer MD
[2018-04-15 08:36] VITALS: BP 134/96; PULSE 75; RESP 20; TEMP 98
--- NOTE | 2018-04-15 16:00 | CON ---
Copied To: Ary Hernandes MD Attending MD: Ary Hernandes MD DATE: 04/15/2018 HISTORY OF PRESENT ILLNESS: The patient is 72 years old, who had elective cystoscopy with laser vaporization of prostate with GreenLight laser. The patient was seen and examined, sitting in chair, seems to be comfortable. Has hematuria, has indwelling catheter. Being discharged home today. PAST MEDICAL HISTORY: He has past medical history significant for, 1. Mot-rfdlffj-[id number] diabetes, although he is in denial, he does not want to admit that he is diabetic. He thinks he can control with medication. 2. Hypertension. 3. History of cervical degenerative disk disease, status post cervical diskectomy. 4. History of benign prostatic hypertrophy. He was on Rapaflo and Flomax for some time. ALLERGY: HE IS NOT ALLERGIC TO ANY MEDICATION. MEDICATION AT HOME: He is on Rapaflo 4 mg daily, Zestril 2.5 daily, Proscar 5 mg daily. SOCIAL HISTORY: Denies smoking or drinking. Socially drinks only. PHYSICAL EXAMINATION: GENERAL: He is awake, alert, oriented, communicative. VITAL SIGNS: He is afebrile, pulse 75, respirations 21, blood pressure 134/96. LUNGS: Bilateral good airflow. No rhonchi or crackle. HEART: S1 and S2 audible. ABDOMEN: Soft. Nontender. No rebound. No guarding. NEUROLOGICAL: The patient is awake, alert, oriented, able to communicate. LABORATORY EXAM: Blood sugar is 142. ASSESSMENT: 1. Benign prostatic hypertrophy, status post laser vaporization of prostatic tissue. 2. Hypertension. 3. Wsa-tsmvpip-[id number] diabetes. 4. Degenerative disk disease. PLAN: The patient is being discharged home today. He will follow up with Dr. Palmer next Thursday. I advised him to monitor his blood sugar, monitor his blood pressure and call me if there is any fluctuation. We will follow up this patient as outpatient. Ary Hernandes MD
--- NOTE | 2018-04-21 13:02 | PN ---
Copied To: Efren Palmer MD Attending MD: Efren Palmer MD DATE: 04/21/2018 IMMEDIATE POSTOP NOTE SUBJECTIVE: See the operative note. See history and physical. The patient is in stable condition. Vital signs are within normal limits. He is status post photovaporization, GreenLight laser TURP. . We are actually going to admit the patient. He has CBI running. See the operative note. There is some blood-tinged urine. It would be better to monitor the patient given his age and given his medical status, 72 years old, multiple medical issues. We are going to admit the patient to the hospital. He is currently stable. We are going to keep a close eye. Efren Palmer MD
--- NOTE | 2018-04-21 17:35 | HP ---
Copied To: Efren Palmer MD Attending MD: Efren Palmer MD UROLOGY ADMISSION HISTORY AND PHYSICAL REASON FOR ADMISSION: Treatment of retention. HISTORY OF PRESENT ILLNESS: Very pleasant gentleman with hematuria, elevated PSA, voiding dysfunction, and recurrent episodes of retention. He is now being admitted for a photovaporization GreenLight laser. We obtained medical clearance in preparation for today. See the plans listed below. We discussed the options at length. For years, he has been in retention, on and off intermittently. We discussed various options. Today, he is here for GreenLight laser. I discussed with him my concerns about risk of failure, given the born nature of it. But after discussing all the options, he is coming in today for a PVP GreenLight laser. That would be my recommendation as well decrease his recurrent retention. PAST MEDICAL AND SURGICAL HISTORY: Listed in the chart. REVIEW OF SYSTEMS: Listed above. MEDICATIONS: See the chart. ALLERGIES: . Medical clearance obtained. See the chart. PHYSICAL EXAMINATION: GENERAL: A well-developed, well-nourished male, in no apparent distress. VITAL SIGNS: Within normal limits, noted within the chart. LUNGS: Clear. ABDOMEN: Overall soft, nontender. No flank mass appreciated. GENITOURINARY: Normal phallus without discharge. No testicular masses. RECTAL: A 30 g plus gigantic prostate. LABORATORY DATA: See chart. DIAGNOSES: Urinary retention, voiding dysfunction, recurrent episodes of retention, decreased force of stream, gross hematuria, elevated prostate surface antigen. We discussed the options with the patient. We discussed risks, benefits and treatment alternatives at length with the patient. The plan is as follows, We are going to plan for photovaporization GreenLight laser energy, transurethral resection of the prostate and further plans will follow. I did discuss open surgery. This may even benefit the patient more, but he said "no." The other thing I discussed with the Anesthesia, the patient is very insistent and we will talk to the anesthesiologist. He will not have any general anesthesia, so we are going to do with spinal. So, further plan is as follows, 1. Antibiotic prophylaxis. 2. PVP GreenLight laser. 3. Further plans will follow. Efren Palmer MD [facility] # [id number]
--- NOTE | 2018-04-22 07:27 | DS ---
Copied To: Efren Palmer MD Attending MD: Efren Palmer MD HISTORY OF PRESENT ILLNESS: The patient was admitted with urinary retention. He underwent photovaporization, GreenLight laser TURP. He is now discharged home in stable condition with an indwelling Thompson catheter. See the body of the note. We are hoping for eventual outpatient trial of void, and hope the patient does better. See the body of the report. He was discharged home in stable condition. Operative note dictated. The vital signs are within normal limits. He will be going home on antibiotics and Flomax. Stool softener as well. Further plans will follow. Efren Palmer MD
--- NOTE | 2018-04-22 07:37 | OP ---
Copied To: Efren Palmer MD Attending MD: Efren Palmer MD. PROCEDURE DATE: 04/14/2018 PREOPERATIVE DIAGNOSES: Urinary retention, voiding dysfunction, gross hematuria, elevated prostate-specific antigen. POSTOPERATIVE DIAGNOSES: Urinary retention, voiding dysfunction, gross hematuria, elevated prostate-specific antigen, and extremely large juicy, bloody prostate. PROCEDURE: Photovaporization, GreenLight laser energy, transurethral resection of the prostate. SURGEON: Efren Palmer MD. BLOOD LOSS: Less than 25 mL. COMPLICATIONS: None. At the termination of the procedure, the patient was relatively wide open, more specifically at the bladder neck to about 90% down the prostatic urethra, he is wide open. From the verumontanum on in at the edge, it is a little less wide open. See the body of the report. At the termination of the procedure, we had left a Thompson catheter, we turned off all the water and irrigation. There was still some blood noted, but we were able to control it with CBI. INDICATIONS: See history and physical. He is a very pleasant gentleman who actually recommended to consider open prostatectomy. I thought he would do better with suprapubic prostate, but the patient absolutely insisted no. insisted that he would not have general anesthesia, so he had spinal anesthesia. It took 2 anesthesiologists and over an hour and half to get the spinal needle in. working fact on the clock. Throughout the time without trying to discourage the patient from his intention and plan, we did discuss again about the possibility to revisit and allow for general anesthesia, but, in fact, he was persistent. In the end, the patient was awake for the entire procedure and able to watch the camera and see the procedure itself and to walk with us throughout the entire time. Therefore, we were able to monitor him a little bit closely in that regard. No change in the mental status. He tolerated the procedure well without complication. Urology operative findin. Normal anterior urethra. 2. From the verumontanum, it is extremely occlusive, it is long, it is 4 cm or so. And not only that, it is besides long, it is very juicy. There is a good amount of blood noted. See the body of the report, we were able to control it extremely well. Although from the verumontanum to about half centimeter more proximal, it became a little bit more blood tinged. Little bit more difficult to control, but once we put a CBI in, it is very clear. DESCRIPTION OF PROCEDURE: After obtaining informed consent, the patient was placed on the table. Routine monitor was placed. Time-out was called to confirm the patient's positioning. We introduced the continuous flow scope. We used a 22. We used with the visual obturator. The anterior urethra was normal. No strictures. Verumontanum was visually occlusive with extremely large, juicy prostate. See the pictures that were taken at about 3 to 4 cm. We now began at the bladder neck. On evaluation of the orifice, in the orifices. It is mostly prostatic urethra that is the good news with not much of a great intravesical lobe. We now began the bladder neck between 5 and 7 slowly, meticulously, carefully keeping hemostasis in each quadrant, we got 5 to 7, 7 to 11, 5 to 1, back and forth slowly, meticulously a little piece at a time given the bloody nature of the prostate in this particular case. We got slowly, meticulously, carefully wide opening. Multiple pictures were taken out on doing it. See the pictures that are on the chart. We continued working slowly, carefully throughout. position, working our way out to the verumontanum. view, there became a little more blood than expected. I tried using the coagulation meticulously, carefully. There is still some blood anatomic landmarks. I can always see the verumontanum. I can always see the bladder neck. I did best to work rapidly, quickly to open up the prostate from the verumontanum as best as we can and as safely as possible. Further inspection at the bladder neck and distally, it is wide, wide open. As we got closer to the end, it is not as wide open. We turned ourselves anteriorly and we worked between 11 and 1 and then we were able to make this very nice and wide open. We tried to go back and inspect and see we can get better coagulation studies closer to the verumontanum on each side, left and right side, but there is just a good amount of blood noted. So, at this point, we decided safety was most important and we terminated. We inserted a Thompson catheter via the urethra, put on traction, it is nice and crystal clear. Overall, the patient tolerated the procedure well without any complications. When I removed the cystoscope, the flow of urine looks very good. So, hopefully that will be maintained. At this point, we put on traction, put traction to CBI irrigation. The patient tolerated the procedure well without complication. Efren Palmer MD
== END 2018-04-15 13:50 | disposition home or self-care (01) ==
LOC: SDS 06:11 → 3RNO 13:16 → SDS 04-15 13:50
PROVIDERS: ATTEND Urology
DX: N40.1 Benign prostatic hyperplasia with lower urinary tract symptoms (principal); R33.8 Other retention of urine; R31.0 Gross hematuria; R97.20 Elevated prostate specific antigen [PSA]; I10 Essential (primary) hypertension; E11.9 Type 2 diabetes mellitus without complications; M50.30 Other cervical disc degeneration, unspecified cervical region
CPT/HCPCS: 52648; 82948 ×2; 87086; J0696; J1170; J1580; J1885; J2370; J2405; J3010; J7120

== ENCOUNTER 2018-04-25 12:02 | Emergency (ER) | payer MEDICARE, OTHER ==
[2018-04-25 12:03] VITALS: BMI 23.7
[2018-04-25 12:24] VITALS: PULSE 80; RESP 18
--- NOTE | 2018-04-25 12:28 | ED PDOC ---
Arrival/HPI - General Chief Complaint: Abnormal Skin Integrity Time Seen by Provider: 04/25/18 12:17 Historian: Patient - History of Present Illness Narrative History of Present Illness (Text): 04/25/18 12:28 72 year old male, with past medical history of BPH and hypertension, presents to the Emergency department complaining of right arm pain since 1 week. Patient states he had an IV catheter inserted on 04/14/18 secondary to prostrate surgery and has been feeling right arm discomfort since then. Patient informs his surgeon prescribed him Keflex for the pain with no improvement to symptoms. Patient informs persistent pain associated with stiffness to the area prompting him to present to the Emergency department for medical evaluation. Patient denies any fever, chills, nausea, vomiting, diarrhea, abdominal pain, chest pain , shortness of breath, cough, headache, dizziness, neck pain, back pain, recent trauma or any other complaints. PMD: Dr. Hernandes Time/Duration: > week Symptom Onset: Gradual Symptom Course: Unchanged Quality: Aching Activities at Onset: Light Context: Home Past Medical History - Provider Review Nursing Documentation Reviewed: Yes - Infectious Disease Hx of Infectious Diseases: None - Tetanus Immunization Tetanus Immunization: Unknown - Cardiac Hx Hypertension: Yes - Pulmonary Hx Respiratory Disorders: No - Neurological Hx Paralysis: No - HEENT Hx HEENT Disorder: No (WEARS RX GLASSES) - Renal Hx Renal Disorder: No - Endocrine/Metabolic Hx Endocrine Disorders: No - Hematological/Oncological Hx Blood Transfusions: No - Integumentary Hx Dermatological Disorder: No - Musculoskeletal/Rheumatological Hx Musculoskeletal Disorders: Yes (CERVICAL MYELOPATHY,DISSECTOMY/FUSION ANT. CERVICAL C3 08-23-14) - Gastrointestinal Hx Gastrointestinal Disorders: Yes (CONSTIPATION,COLON POLYPS,AKILA ING. HERNIA,) - Genitourinary/Gynecological Hx Genitourinary Disorders: Yes Hx Reproductive Disorders: Yes (ENLARGED PROSTATE) - Psychiatric Hx Emotional Abuse: No Hx Physical Abuse: No Hx Substance Use: No - Past Surgical History Past Surgical History: No Previous - Surgical History Other/Comment: 11-28-14 POST FIXATION/FUSION POST CERVICAL DECOMPRESSION 11-28-14 - Anesthesia Hx Anesthesia Reactions: Yes (VOMITING WITH ETHER CHILD) Hx Malignant Hyperthermia: No - Suicidal Assessment Feels Threatened In Home Enviroment: No Family/Social History - Physician Review Nursing Documentation Reviewed: Yes Family/Social History: No Known Family HX Smoking Status: Never Smoked Hx Alcohol Use: Yes (BEER OCCASIONALLY) Hx Substance Use: No Hx Substance Use Treatment: No Allergies/Home Meds Allergies/Adverse Reactions: Allergies No Known Allergies Allergy (Verified 04/25/18 12:15) Home Medications: Home Meds Medication Instructions Recorded Confirmed Lisinopril [Zestril] 2.5 mg PO DAILY 04/13/18 04/14/18 Review of Systems - Physician Review All systems were reviewed & negative as marked: Yes - Review of Systems Constitutional: absent: Fevers Respiratory: absent: SOB, Cough Cardiovascular: absent: Chest Pain Gastrointestinal: absent: Abdominal Pain, Diarrhea, Nausea, Vomiting Musculoskeletal: Other (right arm pain). absent: Back Pain, Neck Pain Neurological: absent: Headache, Dizziness Physical Exam Vital Signs Reviewed: Yes Vital Signs Temp Pulse Resp BP Pulse Ox 04/25/18 12:11 98 F 80 18 126/90 99 Temperature: Afebrile Blood Pressure: Normal Pulse: Regular Respiratory Rate: Normal Appearance: Positive for: Well-Appearing, Non-Toxic, Comfortable Pain Distress: None Mental Status: Positive for: Alert and Oriented X 3 - Systems Exam Head: Present: Atraumatic, Normocephalic Pupils: Present: PERRL Extroacular Muscles: Present: EOMI Conjunctiva: Present: Normal Mouth: Present: Moist Mucous Membranes Neck: Present: Normal Range of Motion Respiratory/Chest: Present: Clear to Auscultation, Good Air Exchange. No: Respiratory Distress, Accessory Muscle Use Cardiovascular: Present: Regular Rate and Rhythm, Normal S1, S2. No: Murmurs Abdomen: No: Tenderness, Distention, Peritoneal Signs Back: Present: Normal Inspection Upper Extremity: Present: Tenderness (tenderness to vein at distal aspect of right arm. No erythema.). No: Cyanosis, Edema, Erythema Lower Extremity: Present: Normal Inspection. No: Edema Neurological: Present: GCS=15, CN II-XII Intact, Speech Normal Skin: Present: Warm, Dry, Normal Color. No: Rashes Psychiatric: Present: Alert, Oriented x 3, Normal Insight, Normal Concentration Medical Decision Making ED Course and Treatment: 04/25/18 12:25 Impression: 72 year old male presents to the Emergency department complaining of right arm pain. phebltiis vs thrombophebltiits dvt study pending, no e/o o active cellulits pulse present Plan: -- US of right arm vein -- Reassess and disposition Prior Visits: Notes and results from previous visits were reviewed. Progress Notes: 04/25/18 14:34 pt reassesed. dvt study neg. requested for pt to remain in er for further discussion with pmd and surgeon. refuses. requests immediate dc home. - RAD Interpretation Radiology Orders: 04/25/18 12:22 DUPLEX UPPER EXTRM VEIN RIGHT [US] Stat - Medication Orders Current Medication Orders: Discontinued Medications Naproxen (Anaprox Ds) 550 mg PO STAT STA Stop: 04/25/18 14:11 Last Admin: 04/25/18 14:24 Dose: 550 mg - Scribe Statement The provider has reviewed the documentation as recorded by the Scribe Rupinder Barrientos. All medical record entries made by the Scribe were at my direction and personally dictated by me. I have reviewed the chart and agree that the record accurately reflects my personal performance of the history, physical exam, medical decision making, and the department course for this patient. I have also personally directed, reviewed, and agree with the discharge instructions and disposition. Disposition/Present on Arrival - Present on Arrival Any Indicators Present on Arrival: No History of DVT/PE: No History of Uncontrolled Diabetes: No Urinary Catheter: Yes History of Decub. Ulcer: No History Surgical Site Infection Following: None - Disposition Have Diagnosis and Disposition been Completed?: Yes Diagnosis: Phlebitis Disposition: HOME/ ROUTINE Disposition Time: 12:00 Patient Problems: Current Active Problems Problem Status Onset Phlebitis Acute Condition: STABLE Discharge Instructions (ExitCare): Phlebitis (DC), Superficial Phlebitis Additional Instructions: please follow up withyour doctor. you are declining further eval, discussion with your doctors, possible further observation. return to er with worsening symptoms or concerns. Prescriptions: Naproxen 500 mg PO BID PRN #14 tablet PRN Reason: Pain, Mild (1-3) Referrals: Ary Hernandes MD [Primary Care Provider] - Follow up with primary Forms: [employer] ([place]ian)
[2018-04-25] MEDS ORDERED: Naproxen 550 mg Tab PO STA (14:10)
[2018-04-25 14:44] VITALS: BP 124/85; TEMP 98.2; O2SAT 98
--- NOTE | 2018-04-25 18:45 | US ---
PROCEDURE: Right upper extremity venous US CLINICAL HISTORY: Arm pain and swelling Evaluate for deep venous thrombosis. PHYSICIAN(S): Baldo Aguilar M.D FINDINGS: The visualized rightinternal jugular vein is sonographically normal and compressible. No evidence of obstruction or thrombus is seen. The visualized segments of the right subclavian vein are patent with normal waveforms. No sonographic evidence of obstruction or thrombosis is seen. The visualized deep venous system of the proximal right upper extremity is sonographically normal and compressible. IMPRESSION: 1. No sonographic evidence for deep venous thrombosis in the visualized segments of the right upper extremity.
== END 2018-04-25 14:43 | disposition home or self-care (01) ==
LOC: ED 12:02
DX: I80.8 Phlebitis and thrombophlebitis of other sites (principal)